=== PATIENT | female | born 1975 | race African-American/Black ===

== ENCOUNTER 2018-09-07 06:51 | Emergency (ER) | payer BC ==
[~2018-09-07] VITALS: Ht 172.7 cm; Wt 113.4 kg
--- NOTE | ~2018-09-07 | EKG ---
[address] [place] [address] ELECTROCARDIOGRAM REPORT Name: DAVION TORRES Room #: [facility] Sharmila#: [id number] Admission: 09/07/18 Attend Phys: Discharge: 09/07/18 Date of : 79 Report #: [id number] THIS REPORT FOR: //name// [facility] ED Test Date: 2018-09-07 Test Time: 07:10:51 Pat Name: DAVION TORRES Department: Room: Gender: F Director Of Annual Giving: UNKNOWN : 1975 Requested By: Phoenxi Garcia Order Number: [id number] MD: Rahul Waggoner Measurements Intervals [place] Rate: 56 P: 32 ME: 145 QRS: 40 QRSD: 95 T: 1 QT: 420 QTc: 406 Interpretive Statements Sinus rhythm No previous ECG available for comparison Electronically Signed On 09-09-2018 8:28:16 CDT by Rahul Waggoner [email or web address] <ELECTRONICALLY SIGNED> By: Rahul Waggoner MD 09/09/18 0828 0710 0710 Rahul Waggoner MD /EPI
[2018-09-07 08:09] LABS: ABSOLUTE NEUTROPHILS 1.6 thou/uL (1.4-8.2); BASOPHILS 0.7 % (0.0-2.0); EOSINOPHILS 2.3 % (0.0-3.0); HEMATOCRIT 37.1 % (37.0-47.0); HEMOGLOBIN 12.3 gm/dL (12.0-15.0); LYMPHOCYTES 47.7 % (24.0-44.0); MCHC 33.2 g/dL (28.0-37.0); MCV 81.5 fL (80.0-100.0); PLATELET COUNT 186 thou/uL (150-400); POLYS 42.3 % (36.0-66.0); RBC 4.55 mil/uL (4.20-5.00); RDW 14.2 % (10.5-14.5); WBC 3.9 thou/uL (4.0-11.0)
[2018-09-07 08:20] LABS: ANION GAP 7 mmol/L (7-16); BUN 12 mg/dL (7-18); CHLORIDE 105 mmol/L (98-107); CO2 28 mmol/L (21-32); CREATININE 0.9 mg/dL (0.6-1.0); GLUCOSE 137 mg/dL (74-106); POTASSIUM 3.3 mmol/L (3.5-5.1); SODIUM 140 mmol/L (136-145)
[2018-09-07 08:29] LABS: TROPONIN-I <0.06 ng/mL (<0.06)
[2018-09-07 09:06] VITALS: BP 101/64
[2018-09-07] MEDS ORDERED: KLOR-CON 1010 MEQ PO ×2 (09:08→09:10)
== END 2018-09-07 09:10 | disposition home or self-care (01) ==
LOC: ER 06:51
PROVIDERS: Emergency Medicine
DX: R07.89 Other chest pain (principal); E87.6 Hypokalemia; R25.2 Cramp and spasm; E11.9 Type 2 diabetes mellitus without complications; Z90.710 Acquired absence of both cervix and uterus; Z87.891 Personal history of nicotine dependence

== ENCOUNTER 2019-12-15 12:48 | Emergency (ER) | payer BC ==
[~2019-12-15] VITALS: Ht 172.7 cm; Wt 117.9 kg
[~2019-12-15 12:48] MED LIST: KLOR-CON 1010 MEQ PO
[2019-12-15] MEDS ORDERED: MULTIVITAM PO (13:06)
[2019-12-15] MEDS ORDERED: TESSALON PERLE100 MG PO (13:49)
[2019-12-15] MEDS ORDERED: FLONASE 0.05%50 MCG NASAL (13:49)
[2019-12-15] MEDS ORDERED: SUDOGEST30 MG PO (13:49)
[2019-12-15 13:59] VITALS: BP 122/69
== END 2019-12-15 14:00 | disposition home or self-care (01) ==
LOC: ER 12:48
DX: J06.9 Acute upper respiratory infection, unspecified (principal); E11.9 Type 2 diabetes mellitus without complications; Z90.710 Acquired absence of both cervix and uterus; Z87.891 Personal history of nicotine dependence

== ENCOUNTER 2021-03-10 08:48 | Emergency (ER) | payer BC ==
[~2021-03-10] VITALS: Ht 175.3 cm; Wt 111.1 kg
[~2021-03-10 08:48] MED LIST changes: +FLONASE 0.05%50 MCG NASAL; +MULTIVITAM PO; +SUDOGEST30 MG PO; +TESSALON PERLE100 MG PO
[2021-03-10] MEDS ORDERED: ZANAFLEX4 MG PO (10:24)
[2021-03-10 11:08] VITALS: BP 147/86
== END 2021-03-10 11:12 | disposition home or self-care (01) ==
LOC: ER 08:48
DX: M54.31 Sciatica, right side (principal); E11.9 Type 2 diabetes mellitus without complications; Z87.891 Personal history of nicotine dependence; Z79.899 Other long term (current) drug therapy; Z90.710 Acquired absence of both cervix and uterus